=== PATIENT | male | born 1950 | race Caucasian/White ===

== ENCOUNTER 2020-01-16 06:37 | Outpatient (CLI) | payer MEDICARE, OTHER, SELFPAY ==
--- NOTE | ~2020-01-16 | CT_ITS ---
EXAMINATION: CT abdomen pelvis wo/w con DATE: 01/16/2020 07:33 INDICATION: Cancer of the bladder neck TECHNIQUE: Computed tomography (CT) of the abdomen and pelvis was performed without intravenous contr ast. CT of the abdomen and pelvis was then performed with a total of 130 mL Omnipaque-350 intravenous contrast using a double-bolus technique for simultaneous opacification of the renal parenchyma and r enal collecting system. Automated exposure control and iterative reconstruction technique were employ ed. The dose-length product was 1499.50 mGy-cm. COMPARISON: 11/26/2015 FINDINGS: CT UROGRAM: Tiny calcified nodule in the left lower lobe consistent with old granulomatous disease. Heart size is normal. Atherosclerotic coronary artery calcification. Aortic valve calcification. No pericardial or pleural effusion. Liver, gallbladder, spleen, pancreas and bilateral adrenal glands are normal. Gloria ls including the appendix are normal. Small fat-containing right inguinal hernia. No free intraperito romeo gas or fluid. No pathologically enlarged abdominal or pelvic lymphadenopathy. Small fat-containi ng right inguinal hernia. No interval change in a small region of increased density without evident e nhancement at the entrance to the left inguinal canal most likely plug or scarring related to prior i nguinal hernia repair. Severe lumbar spondylosis. There are bridging osteophytes at multiple levels i n the lower thoracic spine, consistent with diffuse idiopathic skeletal hyperostosis (DISH). There ar e few scattered small bone islands in the pelvis and proximal femurs. Partially visualized retrograde intramedullary dory fixation at the left femur. Severe right renal atrophy with no evident excreted contrast on the delayed images. There are 5 small nonobstructing right renal stones, the largest measuring 5 x 1.5 mm. There is nonenhancing intermedi ate attenuation debris layering in the caudal aspect of the right renal pelvis which does not signifi cantly change in position between prone and supine imaging. There is diffuse wall thickening along an approximately 8 cm length of the mid right ureter the lumen of which is filled with calcified materi al either due to multiple stones or calcified ureteral cast. Left kidney is normal. Excreted contrast is seen extending throughout the left ureter and through the dilated ureterovesicular junction which measures 5 mm contrast opacified diameter. The ureterovesicular junction is positioned more anterior ly than on the prior study at which time there is also a filling defect within the distal left ureter suggesting interval distal ureterectomy and reimplantation along the more anterior bladder. No uroth elial irregularities along the left renal collecting system or ureter. No significant interval change in a small region of soft tissue density extending along the periphery of the right lateral wall of the bladder extending to the right ureterovesicular junction and right seminal vesicle. There are sev eral tiny densities which could represent calcifications, surgical clips and suture material or combi [place] thereof. There is some architectural distortion with rightward shift of the prostate and semin al vesicles and some lobular contour to the normal thickness left inferior wall of the bladder sugges ting sequela of prior partial cystectomy. No intraluminal nodules or other urothelial irregularities within the bladder. IMPRESSION: 1. Postoperative change of likely prior partial cystectomy with stable appearance of a small region of soft tissue density along the right posterolateral bladder wall extending to the right seminal ves icle consistent with treated bladder cancer. 2. Atrophic and likely minimally to nonfunctional right kidney which is without evident contrast excr etion. 3. Right nephrolithiasis with nonenhancing debris in the renal pelvis and with numerous small stones ve
--- NOTE | ~2020-01-16 | XR_ITS ---
EXAMINATION: XR chest 2V 01/16/2020 07:35 INDICATION: Gallbladder cancer. PROCEDURE: 2 view chest COMPARISON: No prior studies for comparison. FINDINGS: The lungs are clear. The cardiomediastinal silhouette is within normal limits. There are no pleural effusions. There is no pneumothorax suspected. IMPRESSION: 1: NO ACUTE CARDIOPULMONARY DISEASE. Reviewed, dictated and finalized at location B.
[2020-01-16 07:08] LABS: Estimated Glomerular Filt Rate 38
== END 2020-01-16 06:38 | disposition home or self-care (01) ==
PROVIDERS: Visit Provider Urology
DX: C67.5 Malignant neoplasm of bladder neck (principal); N20.0 Calculus of kidney
CPT/HCPCS: 71046; 74178; Q9967